=== PATIENT | female | born 1930 | race Caucasian/White ===

== ENCOUNTER 2016-11-20 17:27 | Emergency (ER) | payer MEDICARE, OTHER ==
--- NOTE | ~2016-11-20 | CT71 ---
[facility] A Service [facility] RADIOLOGY TEXT RESULTS PATIENT: DIEUDONNE LA LOCATION: DOTTY : 29 UNIT #: [id number] AGE: [address]: Laci Wadsworth MD SEX: F ORDER DR: [id number] [facility] [address]. [place], [place] [address] [id number] E MR#: [id number] Acc #: [id number] NAME: DIEUDONNE LA : 1930 SEX: F STUDY DATE/TIME: 11/20/2016 18:32 UNIT: DOTTY ROOM: STUDY DESCRIPTION: CT Head Wo Contrast Attending Physician: Laci Wadsworth M.D. Ordering Physician: Laci Wadsworth M.D. Primary Care Physician: Venkata Roblero M.D. MEDICAL IMAGING REPORT This report is preliminary unless electronic signature is present EXAM Head CT without contrast HISTORY Headache, nausea and dizziness with weakness for the past 2 months. TECHNIQUE Axial images were obtained without contrast The CT exam was performed with one or more of the following radiation dose reduction techniques: automatic exposure control, adjustment of mA and/or kV according to patient size, and iterative reconstruction. FINDINGS Generalized atrophy is seen to a mild degree. There is no evidence of mass lesion, hemorrhage or edema. No midline shift is seen. Extraaxial structures are unremarkable. IMPRESSION Atrophy. No acute findings. No change is noted since the previous scan from 01/08/2015. Dictated by... Anoop Hughes M.D. THIS IS AN ELECTRONICALLY VERIFIED REPORT Anoop Hughes M.D. at 11/22/2016 11:02 AM RLF/myesha TD: 11/21/2016 11:12 JOB #: [id number] [facility] A Service [facility] RADIOLOGY TEXT RESULTS PATIENT: DIEUDONNE LA LOCATION: DOTTY : 29 UNIT #: [id number] AGE: [address]: Laci Wadsworth MD SEX: F ORDER DR: MEDICAL IMAGING REPORT Page 1 of 1 COPY
--- NOTE | ~2016-11-20 | CR72 ---
[facility] A Service of [facility] RADIOLOGY TEXT RESULTS PATIENT: DIEUDONNE LA LOCATION: [facility] : 29 UNIT #: [id number] AGE: [address]: Laci Wadsworth MD SEX: F ORDER DR: [id number] [facility] [address] [place], [place] [address] [id number] E MR#: [id number] Acc #: [id number] NAME: DIEUDONNE LA : 1930 SEX: F STUDY DATE/TIME: 11/20/2016 17:43 UNIT: [facility] ROOM: STUDY DESCRIPTION: CR Chest Single View Portable Attending Physician: Laci Wadsworth M.D. Ordering Physician: Laci Wadsworth M.D. Primary Care Physician: Venkata Roblero M.D. MEDICAL IMAGING REPORT This report is preliminary unless electronic signature is present EXAM Portable chest HISTORY Shortness breath, headache and dizziness for the past 2 months. COMPARISON 10/07/2015 TECHNIQUE Single view of the chest was obtained. FINDINGS Since the previous examination, the heart, lungs and mediastinum show no changes. The lungs are clear. The heart and mediastinum are stable and vascular markings are normal. IMPRESSION No active disease. No change from the previous exam. Dictated by... Anoop Hughes M.D. THIS IS AN ELECTRONICALLY VERIFIED REPORT Anoop Hughes M.D. at 11/22/2016 11:02 AM RLF/to TD: 11/21/2016 11:22 JOB #: [id number] MEDICAL IMAGING REPORT Page 1 of 1 COPY
[~2016-11-20 17:27] MED LIST: ACETAMINOPHEN PO; ACTONEL; ACYCLOVIR400 MG PO; ASPIRIN PO; ASPIRIN81 M1 PO; ASPIRIN81 M2 PO; ASPIRIN81 MG PO; BAYER ASPIRIN325 M1 PO; BENZONATATE PO; CALCIUM + D 6001 TA1 PO; CALCIUM PO; CIPRO250 M1 PO; COLACE50 MG PO; DIAZEPAM; DIAZEPAM PO; DIAZEPAM10 MG PO; DICLOFENAC PO; DITROPAN5 MG PO; DUONEB 2.5-0.5 M3 ML NEB; EFFER-K 10 MEQ10 MEQ PO; FERRO-TIME325 MG PO; FIBERCON625 MG; FIBERCON625 MG PO; GERITOL COMPLET1 TA1 PO; HCTZ PO; HYDROCODON-ACE1 EAC1 PO; HYDROCODON-ACE1 EAC5 PO; HYDROCODON-ACE1 EAC9 PO; HYDROCODON-ACE1 EACH PO; HYDROCODONE-APA1 T44 PO; IBUPROFEN600 MG PO; KCL; KCL PO; LASIX; LASIX PO; LASIX20 MG PO; LEVAQUIN PO; LEVAQUIN750 M1 PO; LEVOTHYROXINE100 MCG PO; LEVOXYL0.137 MG DOB; LEVOXYL112 MCG PO; LEVOXYL200 MC1 PO; LEVOXYL50 MC1 PO; LIPITOR; LISINOPRIL10 MG PO; LISINOPRIL2.5 MG PO; LORTAB 5/500 TA1 TA2 PO; MELOXICAM15 MG PO; MELOXICAM7.5 MG/5 M PO; METOPROLOL SUCC25 MG PO; METOPROLOL TAR25 MG PO; MOBIC PO; MUCINEX PO; NEURONTIN PO; NEURONTIN100 MG PO; NORCO 10-325 TA1 TAB PO; OMEPRAZOLE10 MG PO; OMEPRAZOLE20 M2 PO; OMEPRAZOLE40 M1 PO; PREDNISONE PO; PRILOSEC PO; PRINIVIL10 MG PO; PROTONIX; PROTONIX PO; ROPINIROLE HC0.25 MG PO; SENNA S TABLET1 TAB; SENNA S TABLET1 TAB PO; SIMVASTATIN40 MG PO; ST JOSEPH ASPIR81 M1 PO; STOOL SOFTENER1 EAC1 PO; STOOL SOFTENER1 EACH PO; STOOL SOFTENER100 M1 PO; STOOL SOFTENER50 MG PO; SYNTHROID; SYNTHROID PO; SYNTHROID0.05 MG PO; THERAPEUTIC VI1 EACH PO; TIROSINT88 MCG PO; VALIUM5 MG/M1 PO; VANCOMYCIN HCL125 MG PO; VICODIN; VICODIN 5/500 T1 TAB PO; VIT D PO; VOLTAREN75 MG PO; ZESTRIL2.5 M1 PO; ZITHROMAX PO; ZOCOR PO; [UNRECOGNIZED DRUG - OTHER] PO
[2016-11-20 19:32] LABS: BASOPHIL# 0.1 X10e3 (0-0.3); BASOPHIL% 1.1 % (0-2.5); EOSINOPHIL# 0.1 X10e3 (0-0.7); EOSINOPHIL% 1.7 % (0.0-7.0); HEMATOCRIT 35.1 % (35.0-45.0); HEMOGLOBIN 11.7 gm/dL (12.0-16.0); LYMPHOCYTE% 28.7 % (17.0-45.0); MEAN CELL VOLUME 92.8 FL (83-96); MEAN CORPUSCULAR HEMOGLOBIN 30.8 PG (28-34); MEAN CORPUSCULAR HGB CONC 33.2 g/dL (30-36); MEAN PLATELET VOLUME 7.2 FL (6.5-11.5); MONOCYTE# 0.4 X10e3 (0-1.0); MONOCYTE% 5.6 % (3.0-12.0); NEUTROPHIL# 4.4 X10e3 (1.5-7.1); NEUTROPHIL% 62.9 % (40-75); PLATELET COUNT 217 X10e3 (140-420); RED BLOOD COUNT 3.79 X10e (3.90-5.30); RED CELL DISTRIBUTION WIDTH 16.6 % (11.0-15.5)
[2016-11-20 19:41] LABS: DIFF IND NO
[2016-11-20 19:52] LABS: ALBUMIN SERUM 4.2 g/dL (3.5-5.0); BILIRUBIN,TOTAL 0.7 mg/dL (0.2-2.0); CALCIUM SERUM 8.6 mg/dL (8.4-10.2); CREATININE SERUM 1.3 mg/dL (0.6-1.4); GLOM FILT RATE Estimated 41.2 mL/min (>60); POTASSIUM 3.9 mmol/L (3.5-5.1); PROTEIN TOTAL SERUM 6.9 g/dL (6.0-8.3)
[2016-11-20 19:54] LABS: URINE SOURCE CLEAN CATCH
[2016-11-20 20:03] LABS: URINE APPEARANCE CLEAR; URINE BILIRUBIN NEG (NEG); URINE BLOOD NEG (NEG); URINE COLOR YELLOW; URINE GLUCOSE NEG (NEG); URINE KETONE NEG (NEG); URINE LEUKOCYTE ESTERASE NEG (NEG); URINE NITRATE NEG (NEG); URINE PROTEIN NEG (NEG); URINE UROBILINOGEN 0.2 MG/DL (NEG)
[2016-11-20 20:08] LABS: CULTURE INDICATED? NO
[2016-11-20 21:11] LABS: INFLUENZA A NEG (NEG); INFLUENZA B NEG (NEG)
[2016-11-26] MEDS ORDERED: CALCIUM + D 6001 TA1 PO (14:52)
[2016-11-26] MEDS ORDERED: HYDROCODON-ACE1 EAC5 PO (14:52)
[2016-11-26] MEDS ORDERED: LEVOTHYROXINE112 MCG PO (14:53)
[2016-11-26] MEDS ORDERED: OMEPRAZOLE40 M1 PO (14:54)
[2016-11-26] MEDS ORDERED: METOPROLOL TAR25 MG PO (14:54)
[2016-11-26] MEDS ORDERED: NEURONTIN100 MG PO (14:55)
[2016-11-26] MEDS ORDERED: LISINOPRIL2.5 MG PO (14:56)
[2016-11-26] MEDS ORDERED: VALIUM2 MG PO (14:56)
== END 2016-11-20 21:40 | disposition home or self-care (01) ==
LOC: CED 17:27
PROVIDERS: Emergency Medicine
DX: R51 Headache (principal); R53.81 Other malaise; R53.83 Other fatigue; I11.0 Hypertensive heart disease with heart failure; I50.9 Heart failure, unspecified; Z90.49 Acquired absence of other specified parts of digestive tract; Z90.710 Acquired absence of both cervix and uterus; Z88.0 Allergy status to penicillin; Z88.1 Allergy status to other antibiotic agents; Z88.8 Allergy status to other drugs, medicaments and biological substances
CPT/HCPCS: 36415; 70450; 71010; 80053; 81003; 85025; 85652; 87804; 99284

== ENCOUNTER 2016-11-26 15:23 | Inpatient (IN) | payer MEDICARE, OTHER ==
--- NOTE | ~2016-11-26 | HP ---
Unit #: [id number] #: [id number] Patient: DIEUDONNE LA 100499 [address] [place], [place] [address] [id number] I MR#: [id number] NAME: DIEUDONNE LA ROOM: [facility] Age: 86 Sex: F Admission Date: 11/26/2016 : 1930 Attending Physician: Joe Fletcher M.D. Referring Physician: Adrián Beck M.D. Primary Care Physician: Venkata Roblero M.D. HISTORY AND PHYSICAL CHIEF COMPLAINT Near syncopal episode with abdominal pain. HISTORY OF PRESENT ILLNESS The patient is an 86-year-old female with a history of GERD, hypothyroidism, and hypertension, who presented to the emergency room with a near syncopal episode associated with abdominal pain. The patient was seen here yesterday for weakness and was discharged home. The patient presented today after being found on the floor for 30-40 minutes with a near syncopal episode when she was coming back from the bathroom. The patient also was found to have bright red blood in a bowel movement in the emergency room. The patient had a CT of the abdomen and pelvis that showed a colonic ileus with stool in the colon and segmental thickening of the transverse and descending colon concerning for diverticulitis. The patient has been admitted for the above reasons. The patient was found to be hypotensive with pressure lows (1) . The patient denies any fever, chills, nausea, or vomiting. She complains of abdominal pain that is sharp and mainly in the left lower quadrant, 10 out of 10 in severity, and nonradiating. PAST MEDICAL HISTORY 1. Gastroesophageal reflux disease. 2. Coronary artery disease. 3. Hypertension. 4. Hyperlipidemia. 5. Degenerative joint disease. 6. Anxiety. 7. Clostridium difficile colitis. PAST SURGICAL HISTORY 1. Cholecystectomy. 2. Appendectomy. 3. Hysterectomy. 4. Small bowel surgery for a bezoar. 5. Back surgery. 6. Surgery of the elbow and wrist. 7. Carpal tunnel release. 8. Glaucoma. 9. Cataract extraction. ALLERGIES Betadine, penicillin, Keflex, silver, Demerol, latex, Voltaren, codeine, sulfa, and Zocor. Unit #: [id number] #: [id number] Patient: DIEUDONNE LA HOME MEDICATIONS 1. Calcium. 2. Hydrocodone. 3. Levothyroxine. 4. Metoprolol. 5. Omeprazole. 6. Neurontin. 7. Valium. 8. Lisinopril. SOCIAL HISTORY The patient lives alone. She stopped smoking in 1996 and does not drink alcohol. FAMILY HISTORY Colon cancer. REVIEW OF SYSTEMS A 14-point review of systems was performed and only pertinent positive findings are described above. The remaining are negative. PHYSICAL EXAMINATION GENERAL: Patient is lying in bed not in acute distress. VITAL SIGNS: Temperature is 96.9, pulse 53, respiratory rate 23, blood pressure 137/121, and saturating 95% on room air. HEENT: Head atraumatic, normocephalic. Pupils equal, round, and reactive to light and accommodation. Extraocular movements are intact. Dry mucous membranes. NECK: Supple. LUNGS: Clear to auscultation bilaterally. No rhonchi, no wheezing. HEART: Regular rate and rhythm. ABDOMEN: Soft. Positive bowel sounds. Tenderness at the left lower quadrant and healed surgical scars. EXTREMITIES: No cyanosis, no clubbing. NEUROLOGIC: Alert, awake, and oriented. No gross focal motor deficit. DIAGNOSTIC STUDIES LABORATORY: Glucose 145, BUN 27, creatinine 1.5, sodium 132, potassium 3.5, chloride 105, bicarb 19, calcium 7, total protein 4.8, albumin 2.7, AST 76, and ALT 58. Amylase 270 and lipase 16. INR is 1.1. WBC 5.7, hemoglobin 14.4, hematocrit 44.1, platelets 198,000, and neutrophils 84.5%. Urinalysis shows trace leukocyte esterase, trace protein, 0-2 urine RBCs, and 0-2 urine WBCs. ASSESSMENT 1. Diverticulitis. 2. Rectal bleeding. 3. Hypotension. 4. Hyponatremia. 5. Acute kidney injury. PLAN Admit patient to inpatient with telemetry. Continue with IV fluids and normal saline at 100 mL/hour and IV antibiotics with levofloxacin and Flagyl. Repeat the labs again in the morning. Will have a GI consult for the rectal bleeding. Patient will have bowel rest. Further recommendations will follow as more lab results are available. Unit #: [id number] #: [id number] Patient: DIEUDONNE LA Dictated by Fahad Ward TD: 11/27/2016 15:05 JOB #: [id number] HISTORY AND PHYSICAL Page 1 of 1 X X HISTORY AND PHYSICAL
--- NOTE | ~2016-11-26 | CR4 ---
[facility] A Service of [facility] RADIOLOGY TEXT RESULTS PATIENT: DIEUDONNE LA LOCATION: [facility] 328- : 29 UNIT #: [id number] AGE: [address]: Joe Fletcher MD SEX: F ORDER DR: [id number] [facility] [address] [place], [place] [address] [id number] I MR#: [id number] Acc #: [id number] NAME: DIEUDONNE LA : 1930 SEX: F STUDY DATE/TIME: 11/28/2016 12:21 [facility]: [facility] STUDY DESCRIPTION: CR Abdomen Flat Upright or Dec Attending Physician: Joe Fletcher M.D. Referring Physician: Adrián Beck M.D. Ordering Physician: Adrián Beck M.D. Primary Care Physician: Venkata Roblero M.D. MEDICAL IMAGING REPORT This report is preliminary unless electronic signature is present EXAM Flat and upright abdomen 11/28/2016 HISTORY 86-year-old female with abdominal pain and distention today. COMPARISON STUDIES No comparison FINDINGS The bowel gas pattern is nonobstructed. There is no free air under the diaphragm. There appear to be small bilateral pleural effusions. Degenerative changes of the spine. Right hip arthroplasty. Right PICC line. IMPRESSION Nonobstructed bowel gas pattern. Dictated by... Jethro Acharya M.D. THIS IS AN ELECTRONICALLY VERIFIED REPORT Jethro Acharya M.D. at 11/29/2016 10:00 AM Yaneli TD: 11/28/2016 18:05 JOB #: [id number] MEDICAL IMAGING REPORT Page 1 of 1 COPY
--- NOTE | ~2016-11-26 | CT71 ---
[facility] A Service of [facility] RADIOLOGY TEXT RESULTS PATIENT: DIEUDONNE LA LOCATION: [facility] : 29 UNIT #: [id number] AGE: [address]: Joe Fletcher MD SEX: F ORDER DR: [id number] [facility] [address] [facility] [place], [place] [address] [id number] I MR#: [id number] Acc #: [id number] NAME: DIEUDONNE LA : 1930 SEX: F STUDY DATE/TIME: 12/02/2016 14:33 [facility]: [facility] STUDY DESCRIPTION: CT Head Wo Contrast Attending Physician: Joe Fletcher M.D. Referring Physician: Adrián Beck M.D. Ordering Physician: Joe Fletcher M.D. Primary Care Physician: Venkata Roblero M.D. MEDICAL IMAGING REPORT This report is preliminary unless electronic signature is present EXAM CT scan of the head without contrast. HISTORY Mental status changes, syncope, dizziness since 2 a.m. TECHNIQUE Unenhanced images were obtained through the brain. This CT exam was performed with one or more of the following radiation dose reduction techniques: automatic exposure control, adjustment of mA and/or kV according to patient size, and iterative reconstruction. FINDINGS The ventricles and subarachnoid spaces are normal. There are no masses of extraaxial fluid collections or hemorrhage. There has been no change. IMPRESSION No change. No evidence of malignancy. Dictated by... Harshal Santana M.D. THIS IS AN ELECTRONICALLY VERIFIED REPORT Harshal Santana M.D. at 12/02/2016 11:08 PM JOHN/antionette TD: 12/02/2016 17:23 JOB #: [id number] [facility] A Service of [facility] RADIOLOGY TEXT RESULTS PATIENT: DIEUDONNE LA LOCATION: [facility] : 29 UNIT #: [id number] AGE: [address]: Joe Fletcher MD SEX: F ORDER DR: MEDICAL IMAGING REPORT Page 1 of 1 COPY
--- NOTE | ~2016-11-26 | CO ---
Unit #: [id number] #: [id number] Patient: DIEUDONNE MEJIA [id number] [address] [place], [place] [address] [id number] I MR#: [id number] NAME: DIEUDONNE MEJIA ROOM: 328 Age: 86 Sex: F Admission Date: 11/26/2016 : 1930 Attending Physician: Joe Fletcher M.D. Primary Care Physician: Venkata Roblero M.D. Consultation Date: 11/27/2016 CONSULTATION REPORT REASON FOR CONSULTATION Abdominal pain, colitis, diverticulitis. HISTORY OF PRESENTING ILLNESS Ms. Mejia is a pleasant 86-year-old female. She started with severe abdominal pain mostly in the left side of the abdomen yesterday morning around 10 o'clock. Since then, she has had multiple bowel movements with blood and sometimes with clots and had a few bowel movements here in the emergency room last night also with a similar findings. It seems to be slowing down some. She has no nausea or vomiting. She did have some chills. She has not had any similar findings in the past. She had a colonoscopy done in 2011 when she was found to have diverticulosis. PAST MEDICAL HISTORY Significant for coronary artery disease, congestive heart failure. She is status post laparoscopic cholecystectomy. Multiple surgeries in the past otherwise also. MEDICATIONS Home list reviewed. ALLERGIES To penicillin, cephalosporin, sulfadiazine, and codeine. SOCIAL HISTORY Nonsmoker. Nonalcoholic. REVIEW OF SYSTEMS A complete 10-point review of systems was done, which is unremarkable other than as mentioned above. PHYSICAL EXAMINATION VITAL SIGNS: Stable. Temperature 99, pulse 63, respirations 23, blood pressure of 103/53. HEENT: Pupils are equal and reactive. Sclerae anicteric. Oral mucosa moist. NECK: No JVD. No lymphadenopathy. CHEST: Clear to auscultation bilaterally. CARDIOVASCULAR: Regular rate and rhythm. No murmurs. ABDOMEN: Significantly tender. Some guarding. No rebound. Bowel sounds are present. EXTREMITIES: Without any clubbing, cyanosis, or edema. NEUROLOGIC: Grossly intact. Unit #: [id number] #: [id number] Patient: DIEUDONNE MEJIA DIAGNOSTIC STUDIES LABORATORY RESULTS: Chemistry showed BUN and creatinine at 27 and 1.5. Sodium at 132. LFTs with AST of 73, ALT of 58, her amylase was 270, lipase was 16. CBC with a white count at 17,600, hemoglobin of 10.4, and platelet count of 144. IMAGING STUDIES: CT scan abdomen shows mild dilation of the entire colon with inflammatory stranding around transverse colon and descending colon suggesting possible colitis. There was a large hiatal hernia. Both intra and extrahepatic ductal dilation noted that was attributed to the previous cholecystectomy. ASSESSMENT AND PLAN 1. The patient with significant abdominal pain, acute with the lower gastrointestinal bleeding, and CT scan findings as described suggest possible ischemic colitis, infectious etiology, and others cannot be ruled out. At this point, we keep her on broad-spectrum antibiotics and supportive care and pain medications. Once the symptoms starts settling down, colonoscopy will be needed to have a definitive diagnosis. Stool studies will be obtained including culture and sensitivity and Clostridium difficile. 2. Amylase elevated enough to suggest acute pancreatitis. Mildly elevated LFTs also including dilated duct, possibility of biliary pancreatitis cannot be ruled out. We will repeat the labs and continue with conservative treatment for now. Thank you, Dr. Beck for this interesting consult. We will follow along. Dictated by... Fahad Ramos/emmett TD: 11/27/2016 23:14 JOB #: [id number] CONSULTATION REPORT Page 1 of 1 X Josef Baker MD X CONSULTATION REPORT
--- NOTE | ~2016-11-26 | CT4 ---
[facility] A Service of [facility] RADIOLOGY TEXT RESULTS PATIENT: DIEUDONNE LA LOCATION: [facility] 328- : 29 UNIT #: [id number] AGE: [address]: Joe Fletcher MD SEX: F ORDER DR: [id number] [facility] [address]. [place], [place] [address] [id number] I MR#: [id number] Acc #: [id number] NAME: DIEUDONNE LA : 1930 SEX: F STUDY DATE/TIME: 11/29/2016 11:41 UNIT: [facility] PCU ROOM: [facility] STUDY DESCRIPTION: CT Abd and Pelv Wo Cont Attending Physician: Joe Fletcher M.D. Referring Physician: Adrián Beck M.D. Ordering Physician: Joe Fletcher M.D. Primary Care Physician: Venkata Roblero M.D. MEDICAL IMAGING REPORT This report is preliminary unless electronic signature is present EXAM CT of the abdomen and pelvis without contrast INDICATIONS 86-year-old female with lower abdominal pain and nausea since November [address] of the abdomen and pelvis was performed with oral contrast only. Coronal and sagittal reformatted images obtained. Comparison with 11/06/2016. The CT exam was performed with one or more of the following radiation dose reduction techniques: automatic exposure control, adjustment of mA and/or kV according to patient size, and iterative reconstruction. FINDINGS There is a stable large hiatal hernia. There is a tortuous appearance to the distal esophagus. There are small bilateral pleural effusions. Cholecystectomy. Stable dilatation of the common bile duct. Spleen unremarkable. Kidneys unremarkable. Adrenal glands are unremarkable. Pancreas is unremarkable. There is again demonstrated wall thickening involving the transverse colon and proximal descending colon suggestive of colitis. This is not significantly changed. No evidence of bowel obstruction. Gomez catheter in the bladder. Bone windows demonstrate postoperative changes of the right hip. Scoliosis. IMPRESSION 1. Redemonstrated is wall thickening involving the transverse colon and the proximal descending colon most consistent with colitis. 2. There is no evidence of bowel obstruction. 3. No evidence of abscess. STS. [facility] A Service of [facility] RADIOLOGY TEXT RESULTS PATIENT: DIEUDONNE LA LOCATION: A 328-01 : 29 UNIT #: [id number] AGE: [address]: Joe Fletcher MD SEX: F ORDER DR: Dictated by... Jethro Acharya M.D. THIS IS AN ELECTRONICALLY VERIFIED REPORT Jethro Acharya M.D. at 11/30/2016 9:08 AM SUGEY/myesha TD: 11/29/2016 14:17 JOB #: [id number] MEDICAL IMAGING REPORT Page 1 of 1 COPY
--- NOTE | ~2016-11-26 | EKG ---
PATIENT: DIEUDONNE LA UNIT #: [id number] Ventricular Rate: 123 BPM Atrial Rate: 123 BPM P-R Interval: 144 ms QRS Duration: 10 ms Q-T Interval: 462 ms QTC Calculation(Bezet): 661 ms P [place]: 207 degrees Calculated R [place]: 0 degrees Calculated T [place]: -45 degrees Diagnosis Line: Sinus rhythm Baseline wander Diagnosis Line: Indeterminate axis Diagnosis Line: Pulmonary disease pattern Diagnosis Line: ST elevation consider anterior injury or acute Diagnosis Line: infarct Diagnosis Line: * ACUTE NE Diagnosis Line: Abnormal ECG Diagnosis Line: No previous ECGs available Diagnosis Line: Confirmed by JUANITO FUENTES MD ([id number]) on 11/28/2016 Diagnosis Line: 10:55:12 PM INTERPRETING MD: ALFREDO STERLING
--- NOTE | ~2016-11-26 | CT14 ---
[facility] A Service of [facility] RADIOLOGY TEXT RESULTS PATIENT: DIEUDONNE LA LOCATION: [address] : 29 UNIT #: [id number] AGE: [address]: Joe Fletcher MD SEX: F ORDER DR: [id number] [facility] [address] [place], [place] [address] [id number] I MR#: [id number] Acc #: [id number] NAME: DIEUDONNE LA : 1930 SEX: F STUDY DATE/TIME: 11/26/2016 13:58 UNIT: [facility] ROOM: [facility] STUDY DESCRIPTION: CT Angio Abdomen and Pelvis Attending Physician: Adrián Beck M.D. Referring Physician: Adrián Beck M.D. Ordering Physician: Jesus Chambers M.D. Primary Care Physician: Venkata Roblero M.D. MEDICAL IMAGING REPORT This report is preliminary unless electronic signature is present EXAM CT angiogram abdomen and pelvis with IV contrast HISTORY Low abdomen pain today. TECHNIQUE This CT exam was performed with one or more of the following radiation dose reduction techniques: automatic control, adjustment of mA and/or kV according to patient size, and iterative reconstruction. FINDINGS IV contrast enhanced CT angiogram of the abdomen and pelvis was performed with 3-D reconstructions. CT ABDOMEN: There is a large hiatal hernia. Mild bronchiectasis in the left lower lobe. Moderate intra and extrahepatic biliary ductal dilatation, with the common bile duct measuring 14 mm in diameter. This could be physiologic, post cholecystectomy. No hepatic mass. Small amount of abdominal ascites. Moderately large amount of stool throughout the colon and rectum and mild associated colonic dilatation suggesting colonic ileus. There is also borderline to mild segmental wall thickening of the colon which could be due to infectious or inflammatory colitis, particularly in the proximal transverse colon and descending colon. No small bowel dilatation. Mild atherosclerotic narrowing at the proximal celiac artery and at the origin of the superior mesenteric artery. These vessels are otherwise widely patent. The inferior mesenteric artery is patent. Bilateral renal arteries appear widely patent. Normal caliber abdominal aorta. CT PELVIS: Moderate amount of stool throughout the distal colon and rectum. The common iliac and internal and external iliac arteries are patent bilaterally with no focal stenosis identified. Minimal free fluid [facility] A Service of [facility] RADIOLOGY TEXT RESULTS PATIENT: DIEUDONNE LA LOCATION: [facility]3-20 : 29 UNIT #: [id number] AGE: [address]: Joe Fletcher MD SEX: F ORDER DR: in the pelvis. Right hip prosthesis. This causes localized streak artifact and limits sensitivity. IMPRESSION 1. Moderately large amount of stool throughout the colon with mild associated colonic dilatation and mild dilatation of the rectum as well. Findings suggest generalized colonic ileus. There is also mild segmental wall thickening of the colon primarily in the proximal transverse colon and distal descending colon which could be secondary to segmental infectious or inflammatory colitis. 2. No small bowel dilatation. 3. Small amount of free fluid in the abdomen and pelvis. 4. The mesenteric vessels are patent. Mild atherosclerotic stenoses at the origins of the celiac and superior mesenteric artery. 5. Large hiatal hernia. 6. Intra and extrahepatic biliary ductal dilatation could be physiologic post cholecystectomy. The common bile duct measures up to 14 mm in diameter. Dictated by... Dre Harrell M.D. THIS IS AN ELECTRONICALLY VERIFIED REPORT Dre Harrell M.D. at 11/27/2016 5:14 PM SHANEL/israel TD: 11/27/2016 01:26 JOB #: [id number] MEDICAL IMAGING REPORT Page 1 of 1 COPY
--- NOTE | ~2016-11-26 | DS ---
Unit #: [id number] #: [id number] Patient: DIEUDONNE LA [id number] [address] [place], [place] [address] [id number] MR#: [id number] NAME: DIEUDONNE LA ROOM: 242 Age: 86 Sex: F Admission Date: 11/26/2016 : 1930 Discharge Date: 12/05/2016 Attending Physician: Rosaline Tucker M.D. Referring Physician: Adrián Beck M.D. Primary Care Physician: Venkata Roblero M.D. DISCHARGE SUMMARY . TRANSITION OF CARE SUMMARY REASON FOR ADMISSION Abdominal pain, acute diverticulitis/colitis, rectal bleeding. HISTORY OF PRESENT ILLNESS/HOSPITAL COURSE The patient is an 86-year-old female, who was admitted secondary to acute GI bleed as well as CT of abdomen and pelvis showing colitis versus ileus. Through her hospital course, consultations were placed to both GI Dr. Baker as well as [facility] services. Through hospital course, she received IV Levaquin as well as IV Flagyl. She underwent a repeat CT scan, which did show similar findings. In reality, her ileus actually showed improvement. When we were trying to initiate her on a p.o. diet, the patient became quite agitated, refused to take anything orally. It was noted that her hemoglobin was dropping once again from 10.4 down to 8.3, and she did have elevated CEA/tumor markers and we gave consideration for colonoscopy. During the time when she was starting to undergo the prep for colonoscopy, she stated very adamantly that she no longer wish for any further medical care. She only wished to be comfortable. She did not want any more laboratory studies. She did not want any further medications and she stated that she wanted to pass away in a state of peace; therefore, in accordance with the patient's wishes who is alert and oriented x3 as well as discussions with the patient's daughter, granddaughter, and numerous family members are present at bedside, the patient was made DNR and later comfort care measures only pending. At the present time, we are awaiting hospice to come and evaluate as well as to see the patient. She currently is on IV fluids as well as a routine comfort measures. Her laboratory studies have been discontinued and we will await further disposition pending hospice evaluation likely later today or early tomorrow. CURRENT CLINICAL DIAGNOSES 1. Acute colitis. 2. Anemia. 3. Bright red blood per rectum. 4. Advanced age. 5. History of hypertension. DISPOSITION Per hospice team. Unit #: [id number] #: [id number] Patient: DIEUDONNE LA Dictated by... Fahad Garvey/emmett TD: 12/05/2016 06:52 JOB #: [id number] DISCHARGE SUMMARY Page 1 of 1 X Joe Fletcher MD X DISCHARGE SUMMARY
[2016-11-26 13:55] LABS: POC - CREATININE 1.01 mg/dL (0.44-1.03)
[2016-11-26 14:36] LABS: BASOPHIL% 0.5 % (0-2.5); EOSINOPHIL% 0.3 % (0.0-7.0); HEMATOCRIT 44.1 % (35.0-45.0); LYMPHOCYTE# 0.8 X10e3 (1.0-3.5); LYMPHOCYTE% 13.8 % (17.0-45.0); MEAN CELL VOLUME 96.1 FL (83-96); MEAN CORPUSCULAR HEMOGLOBIN 31.3 PG (28-34); MEAN CORPUSCULAR HGB CONC 32.6 g/dL (30-36); MEAN PLATELET VOLUME 8.2 FL (6.5-11.5); MONOCYTE# 0.1 X10e3 (0-1.0); MONOCYTE% 0.9 % (3.0-12.0); NEUTROPHIL# 4.8 X10e3 (1.5-7.1); NEUTROPHIL% 84.5 % (40-75); PLATELET COUNT 198 X10e3 (140-420); RED BLOOD COUNT 4.59 X10e (3.90-5.30); RED CELL DISTRIBUTION WIDTH 16.9 % (11.0-15.5); WHITE BLOOD COUNT 5.7 X10e3 (4.0-10.5)
[2016-11-26 14:46] LABS: DIFF IND NO; HEMOGLOBIN 14.4 gm/dL (12.0-16.0)
[2016-11-26 14:56] LABS: INR 1.1; PARTIAL THROMBOPLASTIN TIME 21.2 SECONDS (23.5-31.3); PROTHROMBIN TIME (PATIENT) 11.5 SECONDS (9.6-11.5)
[~2016-11-26 15:23] MED LIST changes: +LEVOTHYROXINE112 MCG PO; +VALIUM2 MG PO
[2016-11-26 16:06] LABS: URINE APPEARANCE CLEAR; URINE BILIRUBIN NEG (NEG); URINE BLOOD NEG (NEG); URINE COLOR DK YELLOW; URINE GLUCOSE NEG (NEG); URINE KETONE NEG (NEG); URINE LEUKOCYTE ESTERASE TRACE (NEG); URINE NITRATE NEG (NEG); URINE PH 6.5 (5-8); URINE PROTEIN TRACE (NEG); URINE SPECIFIC GRAVITY 1.048 (1.003-1.035)
[2016-11-26 16:10] LABS: URBCS1 AUWI 0-2 /[HPF] (0-2); URINE BACTERIA AUWI NEG (NEGATIVE); URINE SQUAMOUS EPITHELIAL CELL NONE SEEN /[HPF]; UWBCS1 AUWI 0-2 (0-5)
[2016-11-26 16:19] LABS: CULTURE INDICATED? NO
[2016-11-26 18:58] LABS: ALBUMIN SERUM 2.7 g/dL (3.5-5.0); BILIRUBIN, DIRECT 0.1 mg/dL (0.0-0.2); BILIRUBIN,INDIRECT 0.4 mg/dL (0.0-0.9); BILIRUBIN,TOTAL 0.5 mg/dL (0.2-2.0); CREATININE SERUM 1.5 mg/dL (0.6-1.4); POTASSIUM 3.5 mmol/L (3.5-5.1); PROTEIN TOTAL SERUM 4.8 g/dL (6.0-8.3)
[2016-11-27 03:45] LABS: BUN/CREATININE RATIO 20.71; CALCIUM SERUM 6.9 mg/dL (8.4-10.2); CREATININE SERUM 1.4 mg/dL (0.6-1.4); GLOM FILT RATE Estimated 33.7 mL/min (>60); POTASSIUM 3.6 mmol/L (3.5-5.1)
[2016-11-27 06:10] LABS: EOSINOPHIL% 0.1 % (0.0-7.0); HEMATOCRIT 31.8 % (35.0-45.0); LYMPHOCYTE# 0.3 X10e3 (1.0-3.5); LYMPHOCYTE% 1.9 % (17.0-45.0); MEAN CELL VOLUME 95.5 FL (83-96); MEAN CORPUSCULAR HEMOGLOBIN 31.1 PG (28-34); MEAN CORPUSCULAR HGB CONC 32.6 g/dL (30-36); MEAN PLATELET VOLUME 7.9 FL (6.5-11.5); MONOCYTE# 0.3 X10e3 (0-1.0); MONOCYTE% 1.9 % (3.0-12.0); NEUTROPHIL# 16.9 X10e3 (1.5-7.1); NEUTROPHIL% 96.1 % (40-75); PLATELET COUNT 142 X10e3 (140-420); RED BLOOD COUNT 3.33 X10e (3.90-5.30); RED CELL DISTRIBUTION WIDTH 16.8 % (11.0-15.5)
[2016-11-27 06:38] LABS: DIFF IND YES; HEMOGLOBIN 10.4 gm/dL (12.0-16.0); WHITE BLOOD COUNT 17.6 X10e3 (4.0-10.5)
[2016-11-27 07:02] LABS: ANISOCYTOSIS SL; PLATELET ESTIMATE NORMAL (NORMAL)
[2016-11-27 10:28] LABS: HEMATOCRIT 30.8 % (35.0-45.0); HEMOGLOBIN 10.1 gm/dL (12.0-16.0); MEAN CELL VOLUME 94.8 FL (83-96); MEAN CORPUSCULAR HGB CONC 32.7 g/dL (30-36); MEAN PLATELET VOLUME 7.3 FL (6.5-11.5); RED BLOOD COUNT 3.25 X10e (3.90-5.30); RED CELL DISTRIBUTION WIDTH 16.7 % (11.0-15.5); WHITE BLOOD COUNT 18.3 X10e3 (4.0-10.5)
[2016-11-27 11:01] LABS: ALBUMIN SERUM 2.9 g/dL (3.5-5.0); BILIRUBIN,TOTAL 0.3 mg/dL (0.2-2.0); BUN/CREATININE RATIO 22.14; CALCIUM SERUM 7.2 mg/dL (8.4-10.2); CREATININE SERUM 1.4 mg/dL (0.6-1.4); GLOM FILT RATE Estimated 33.7 mL/min (>60); POTASSIUM 3.7 mmol/L (3.5-5.1); PROTEIN TOTAL SERUM 4.9 g/dL (6.0-8.3)
[2016-11-28 07:22] LABS: HEMATOCRIT 25.6 % (35.0-45.0); HEMOGLOBIN 8.3 gm/dL (12.0-16.0); MEAN CELL VOLUME 95.8 FL (83-96); MEAN CORPUSCULAR HEMOGLOBIN 31.1 PG (28-34); MEAN CORPUSCULAR HGB CONC 32.5 g/dL (30-36); MEAN PLATELET VOLUME 7.7 FL (6.5-11.5); RED BLOOD COUNT 2.67 X10e (3.90-5.30); RED CELL DISTRIBUTION WIDTH 17.5 % (11.0-15.5)
[2016-11-28 07:55] LABS: ALBUMIN SERUM 2.4 g/dL (3.5-5.0); BILIRUBIN,TOTAL 0.5 mg/dL (0.2-2.0); BUN/CREATININE RATIO 18.57; CALCIUM SERUM 7.3 mg/dL (8.4-10.2); CREATININE SERUM 1.4 mg/dL (0.6-1.4); GLOM FILT RATE Estimated 33.7 mL/min (>60); POTASSIUM 3.6 mmol/L (3.5-5.1); PROTEIN TOTAL SERUM 4.2 g/dL (6.0-8.3)
[2016-11-28 15:04] LABS: HEMATOCRIT 24.6 % (35.0-45.0); HEMOGLOBIN 8.1 gm/dL (12.0-16.0)
[2016-11-29 07:46] LABS: HEMATOCRIT 23.2 % (35.0-45.0); HEMOGLOBIN 7.7 gm/dL (12.0-16.0); MEAN CELL VOLUME 95.5 FL (83-96); MEAN CORPUSCULAR HEMOGLOBIN 31.5 PG (28-34); MEAN PLATELET VOLUME 7.6 FL (6.5-11.5); RED BLOOD COUNT 2.43 X10e (3.90-5.30); RED CELL DISTRIBUTION WIDTH 17.6 % (11.0-15.5); WHITE BLOOD COUNT 8.7 X10e3 (4.0-10.5)
[2016-11-29 08:17] LABS: ALBUMIN SERUM 2.6 g/dL (3.5-5.0); BILIRUBIN,TOTAL 0.3 mg/dL (0.2-2.0); BUN/CREATININE RATIO 18.46; CALCIUM SERUM 7.2 mg/dL (8.4-10.2); CREATININE SERUM 1.3 mg/dL (0.6-1.4); GLOM FILT RATE Estimated 36.9 mL/min (>60); POTASSIUM 3.4 mmol/L (3.5-5.1); PROTEIN TOTAL SERUM 4.8 g/dL (6.0-8.3)
[2016-11-29 18:01] LABS: HEMATOCRIT 25.6 % (35.0-45.0); HEMOGLOBIN 8.5 gm/dL (12.0-16.0)
[2016-11-30 06:28] LABS: HEMATOCRIT 26.7 % (35.0-45.0); HEMOGLOBIN 8.9 gm/dL (12.0-16.0); MEAN CELL VOLUME 94.6 FL (83-96); MEAN CORPUSCULAR HEMOGLOBIN 31.6 PG (28-34); MEAN CORPUSCULAR HGB CONC 33.4 g/dL (30-36); MEAN PLATELET VOLUME 7.3 FL (6.5-11.5); RED BLOOD COUNT 2.82 X10e (3.90-5.30); RED CELL DISTRIBUTION WIDTH 17.3 % (11.0-15.5); WHITE BLOOD COUNT 8.5 X10e3 (4.0-10.5)
[2016-11-30 07:13] LABS: ALBUMIN SERUM 2.4 g/dL (3.5-5.0); BILIRUBIN,TOTAL 0.6 mg/dL (0.2-2.0); CALCIUM SERUM 7.2 mg/dL (8.4-10.2); GLOM FILT RATE Estimated 50.6 mL/min (>60); MAGNESIUM 1.6 mg/dL (1.6-3.0); POTASSIUM 3.9 mmol/L (3.5-5.1); PROTEIN TOTAL SERUM 4.9 g/dL (6.0-8.3)
[2016-12-01 07:10] LABS: HEMATOCRIT 28.8 % (35.0-45.0); HEMOGLOBIN 9.6 gm/dL (12.0-16.0); MEAN CELL VOLUME 94.6 FL (83-96); MEAN CORPUSCULAR HEMOGLOBIN 31.6 PG (28-34); MEAN CORPUSCULAR HGB CONC 33.4 g/dL (30-36); MEAN PLATELET VOLUME 7.5 FL (6.5-11.5); RED BLOOD COUNT 3.05 X10e (3.90-5.30); RED CELL DISTRIBUTION WIDTH 16.8 % (11.0-15.5)
[2016-12-01 07:45] LABS: BUN/CREATININE RATIO 15.55; CALCIUM SERUM 7.2 mg/dL (8.4-10.2); CREATININE SERUM 0.9 mg/dL (0.6-1.4); GLOM FILT RATE Estimated 57.5 mL/min (>60); MAGNESIUM 1.8 mg/dL (1.6-3.0); POTASSIUM 3.3 mmol/L (3.5-5.1)
[2016-12-01 10:12] LABS: ARTERIAL BLD GAS O2 SATURATION 97.3 % (90.0-100.0); ARTERIAL BLOOD GAS CARBOXY HB 0.4 %sat (0.0-9.0); ARTERIAL BLOOD GAS HCO3 18.5 mmol/L; ARTERIAL BLOOD GAS MET HB 0.9 %sat (0.0-2.0); ARTERIAL BLOOD GAS PCO2 35.9 mmHg (35.0-45.0)
[2016-12-01 10:13] LABS: ARTERIAL BLOOD GAS ALLEN TEST NORMAL; ARTERIAL BLOOD GAS ART SITE RIGHT RADIAL; ARTERIAL BLOOD GAS DELIVERY NASAL CANNULA; ARTERIAL DRAW? YES
[2016-12-01 10:53] LABS: URINE APPEARANCE CLEAR; URINE BILIRUBIN NEG (NEG); URINE BLOOD TRACE (NEG); URINE COLOR YELLOW; URINE GLUCOSE 100 MG/DL (NEG); URINE KETONE NEG (NEG); URINE LEUKOCYTE ESTERASE TRACE (NEG); URINE NITRATE NEG (NEG); URINE PH 5.5 (5-8); URINE PROTEIN 1+ (NEG); URINE SPECIFIC GRAVITY 1.015 (1.003-1.035); URINE UROBILINOGEN 0.2 MG/DL (NEG)
[2016-12-01 10:55] LABS: URINE BACTERIA AUWI NEG (NEGATIVE); URINE SQUAMOUS EPITHELIAL CELL OCC /[HPF]
[2016-12-01 11:22] LABS: URINE MUCUS PRESENT
[2016-12-02 06:51] LABS: HEMATOCRIT 28.3 % (35.0-45.0); HEMOGLOBIN 9.6 gm/dL (12.0-16.0); MEAN CELL VOLUME 93.5 FL (83-96); MEAN CORPUSCULAR HEMOGLOBIN 31.7 PG (28-34); MEAN CORPUSCULAR HGB CONC 33.9 g/dL (30-36); MEAN PLATELET VOLUME 7.1 FL (6.5-11.5); RED BLOOD COUNT 3.02 X10e (3.90-5.30); RED CELL DISTRIBUTION WIDTH 16.9 % (11.0-15.5); WHITE BLOOD COUNT 6.9 X10e3 (4.0-10.5)
[2016-12-02 07:35] LABS: BUN/CREATININE RATIO 17.5; CREATININE SERUM 0.8 mg/dL (0.6-1.4); GLOM FILT RATE Estimated 66.3 mL/min (>60); POTASSIUM 4.1 mmol/L (3.5-5.1)
[2016-12-03 05:09] LABS: CA 19-9 12 U/mL (<34); CA125 85 U/mL (<35)
[2016-12-03 06:22] LABS: HEMATOCRIT 27.9 % (35.0-45.0); HEMOGLOBIN 9.3 gm/dL (12.0-16.0); MEAN CELL VOLUME 93.7 FL (83-96); MEAN CORPUSCULAR HEMOGLOBIN 31.4 PG (28-34); MEAN CORPUSCULAR HGB CONC 33.5 g/dL (30-36); MEAN PLATELET VOLUME 7.2 FL (6.5-11.5); RED BLOOD COUNT 2.97 X10e (3.90-5.30); RED CELL DISTRIBUTION WIDTH 16.7 % (11.0-15.5); WHITE BLOOD COUNT 8.7 X10e3 (4.0-10.5)
[2016-12-03 07:06] LABS: BUN/CREATININE RATIO 12.5; CALCIUM SERUM 6.9 mg/dL (8.4-10.2); CREATININE SERUM 0.8 mg/dL (0.6-1.4); GLOM FILT RATE Estimated 66.3 mL/min (>60); POTASSIUM 3.6 mmol/L (3.5-5.1)
== END 2016-12-05 19:57 | DRG 388 ==
LOC: CED 15:23 → CEDOF 19:41 → CICCU3 23:32 → C3A PCU 11-27 20:02 → C2A 12-03 19:13
PROVIDERS: Emergency Medicine; Family Medicine; Internal Medicine
PROC: 30233N1 Transfusion of Nonautologous Red Blood Cells into Peripheral Vein, Percutaneous Approach (ICD-10-PCS; principal; 2016-11-29)
DX: K56.7 Ileus, unspecified (principal); K85.90 Acute pancreatitis without necrosis or infection, unspecified; N17.9 Acute kidney failure, unspecified; I95.9 Hypotension, unspecified; K55.9 Vascular disorder of intestine, unspecified; I13.0 Hypertensive heart and chronic kidney disease with heart failure and stage 1 through stage 4 chronic kidney disease, or unspecified chronic kidney disease; E87.1 Hypo-osmolality and hyponatremia; I50.9 Heart failure, unspecified; K92.2 Gastrointestinal hemorrhage, unspecified; A09 Infectious gastroenteritis and colitis, unspecified; D64.9 Anemia, unspecified; K21.9 Gastro-esophageal reflux disease without esophagitis; E03.9 Hypothyroidism, unspecified; Z51.5 Encounter for palliative care; Z66 Do not resuscitate; R55 Syncope and collapse; M19.90 Unspecified osteoarthritis, unspecified site; I25.10 Atherosclerotic heart disease of native coronary artery without angina pectoris; E78.5 Hyperlipidemia, unspecified; F41.9 Anxiety disorder, unspecified; Z87.891 Personal history of nicotine dependence; Z80.0 Family history of malignant neoplasm of digestive organs; Z90.49 Acquired absence of other specified parts of digestive tract; Z90.710 Acquired absence of both cervix and uterus; Z98.49 Cataract extraction status, unspecified eye; Z88.1 Allergy status to other antibiotic agents; Z88.5 Allergy status to narcotic agent; Z88.0 Allergy status to penicillin; Z88.2 Allergy status to sulfonamides; N18.9 Chronic kidney disease, unspecified
CPT/HCPCS: 36415; 36600; 51702; 70450; 71020; 74020; 74174; 74176; 80048; 80053; 80076; 81003; 82105; 82150; 82378; 82553; 82565; 82803; 82947; 83605; 83690; 83735; 84132; 84439; 84484; 85014; 85018; 85025; 85027; 85610; 85730; 86140; 86301; 86304; 86850; 86900; 86901; 86923; 87040; 93005; 96361; 96365; 96368; 97110; 97116; 97162; 97167; 97530; 99284; 99285; C9113; G8978-GP; G8979-GP; G8987-GO; G8988-GO; J0360; J1650; J1956; J2270; J2310; J2405; J3475; P9016; Q9967